=== PATIENT | female | born 1975 | race Caucasian/White ===

== ENCOUNTER → 2024-09-25 | Outpatient (CLI) | payer SELFPAY | END | disposition home or self-care (01) | PROVIDERS: Referring Provider Nurse Practitioner Women's Health; Visit Provider Nurse Practitioner Women's Health | DX: N64.4 Mastodynia (principal) | CPT/HCPCS: 76642; 77062; 77066; G0279 ==

== ENCOUNTER → 2024-10-03 | Outpatient (CLI) | payer SELFPAY ==
--- NOTE | 2024-10-03 | IMM_PTH ---
PATIENT: KEYUR DIAZ LOC: [facility] U#:[id number] AGE/SX: 49/F ROOM: RE10/03/[address]: Dr. Ebenezer Lopez MD : 1975 BED: DIS: 10/03/2024 SPEC #: [id number] RECD: 10/04/24 13:56 STATUS: YURY REQ #: [id number] BRENNEN: 10/03/24 00:[address]: Ebenezer Lopez DEPT: IMMUNOHISTOCHEMISTRY RECD BY: Naveen Garsia Tissues: Lymph node, NOS Procedures: BCL-2 (add) BCL-6 (add) CD10 (add) CD20 (add) CD23 (add) CD3 (add) CD43 (add) CD45 (add) CD5 (add) CD79A (add) CK8 (add) CYCLIN (add) KI-67 (add) Pankeratin (initial) PHYSIC[facility] INSTIT[facility] [address] [address] SPECIMEN INFORMATION: Tissue Source: Right axillary lymph node Clinical Info: Right axillary lymph node enlargement Specimen Number: [id number] CPT code: 11420,75311h37 METHODOLOGY: Deparaffinized sections of prefer/formalin-fixed tissue or PAP/DQ stained slides are incubated with monoclonal/polyclonal antibodies/oligonucleotide probes. Localization is made via biotin free immunoperoxidase method. Appropriate controls are performed and reacted as expected. Results on target cell population are indicated in the following table: RESULTS: ANTIBODY / CLONE RESULT AE1-3 (AE1/AE3/PCK26) negative CK8 ([id number]) negative CD3 (PS1) positive CD5 (SP10) positive CD20 (L26) positive CD43 (L60) positive CD45 (RP2/18) positive CD79a (11E3) positive CD10 (56C6) negative ( positive only in germinal center) CD23 (1B12) negative BCL-2 (bcl-2/100/D5) negative BCL-6 (LT435L/A8) negative ( positive only in germinal center) Cyclin D1/BCL-1 (SP4) negative Ki-67 (30-9) positive, low These tests were developed and their performance characteristics determined by [facility]. They may not have been cleared or approved by the [place]. Food and Drug Administration. The FDA has determined that such clearance or approval is not necessary. The above immunohistochemical/dualISH markers are ordered and reviewed by the Pathologist. INTERPRETATION: Right axillary lymph node, biopsy: Fragments of benign lymph node tissue with reactive changes. SJ.mr 10/05/2024
--- NOTE | 2024-10-03 10:20 | LYMN_PTH ---
PATIENT: KEYUR DIAZ LOC: [facility] U#:[id number] AGE/SX: 49/F ROOM: RE10/03/[address]: Dr. Ebenezer Lopez MD : 1975 BED: DIS: 10/03/2024 SPEC #: [id number] RECD: 10/03/24 10:49 STATUS: YURY REDebbie #: [id number] BRENNEN: 10/03/24 10:[address]: Ebenezer Lopez DEPT: SURGICAL PATHOLOGY RECD BY: Criselda Huang Tissues: LYMPH NODE BIOPSY Procedures: Surgery Specimen Level IV HEADER OPERATION: Right axillary lymph node biopsy PRE-OP DIAGNOSIS: Right axillary lymph node enlargement TISSUE SUBMITTED: Right axillary lymph node MICROSCOPIC DIAGNOSIS Right axillary lymph node, core biopsy: Fragments of benign lymph node tissue with reactive changes. Negative for malignancy. See blake. 10/04/2024 COMMENT Immunohistochemistry ([id number]) supports the above diagnosis. Clinical correlation and appropriate follow up are necessary. MICROSCOPIC DESCRIPTION Slides are reviewed. GROSS DESCRIPTION Received in saline is one container labeled with the patient's name and designated Right axillary lymph node. The specimen consists of multiple irregular fragments of benoit-yellow adipose tissue that in aggregate measure 1.5 x 0.3 x 0.1 cm. The specimen is totally submitted in one cassette. 10/03/2024 TC:5 CPT:65940
== END | disposition home or self-care (01) ==
LOC: LABSPEC 10:52
PROVIDERS: Referring Provider Surgery; Visit Provider Surgery
DX: R59.9 Enlarged lymph nodes, unspecified (principal)
CPT/HCPCS: 88305; 88341; 88342